=== PATIENT | female | born 1930 | race Caucasian/White ===

== ENCOUNTER 2016-09-19 12:53 | Emergency (ER) | payer MEDICARE ==
[~2016-09-19] VITALS: Ht 149.9 cm; Wt 48.0 kg
[2016-09-19] MEDS ORDERED: LISI1TAB7 PO (13:17)
[2016-09-19] MEDS ORDERED: PLEASE ENTER HEIGHT AND WEIGHT MC SCH (13:30)
[2016-09-19] MEDS ORDERED: BENZONATATE 100 MG CAPSULE PO ONE (13:30)
[2016-09-19 13:53] LABS: BLOOD UREA NITROGEN 23 mg/dL (7-18)
[2016-09-19 13:57] LABS: ASPARTATE AMINO TRANSFERASE 25 U/L (15-37)
[2016-09-19 15:52] LABS: PATH.CAST-FLAG NOT PRESENT; SPERM-FLAG NOT PRESENT; SRC-FLAG NOT PRESENT; XTAL-FLAG NOT PRESENT; YLC-FLAG NOT PRESENT
[2016-09-19 16:39] VITALS: BP 153/85
== END 2016-09-19 16:42 | disposition home or self-care (01) ==
LOC: ED 14:33
DX: R19.7 Diarrhea, unspecified (principal); B34.9 Viral infection, unspecified; I10 Essential (primary) hypertension; N28.9 Disorder of kidney and ureter, unspecified
CPT/HCPCS: 36415; 71010; 74176; 80053; 81001; 85025; 85610; 85730; 87086; 93005

== ENCOUNTER → 2016-11-05 | Outpatient (CLI) | payer MEDICARE ==
[~2016-11-05] MED LIST: ACET500T76 PO; LISI1TAB7 PO; ONDA4TAB7 PO; OXYC5SOL8 PO
== END | disposition home or self-care (01) ==
LOC: STAR 11:01
PROVIDERS: ATTEND Specialist
DX: Z01.812 Encounter for preprocedural laboratory examination (principal)
CPT/HCPCS: 36415; 82378; 86304

== ENCOUNTER 2016-11-10 12:02 | Observation (INO) | payer MEDICARE ==
[~2016-11-10] VITALS: Ht 149.9 cm; Wt 49.0 kg
[~2016-11-10 12:02] MED LIST changes: -ACET500T76 PO; +BUPIVACAINE/PF 0.25% ONE; +CEFOTETAN 1 GM ONE; +DEXAMETHASONE 4 MG/ML, 1ML ONE; +EPHEDRINE 50 MG/ML, 1ML ONE; +EPINEPHRINE 1 MG/ML, 1ML ONE; +GLYCOPYRROLATE 0.2MG/1ML ONE; +LABETALOL 5MG/ML 40ML VIAL ONE; +NEOSTIGMINE 1 MG/ML, 10ML ONE; -ONDA4TAB7 PO; +ONDANSETRON 2MG/ML, 2ML ONE; -OXYC5SOL8 PO; +PHENYLEPHRINE 10 MG/ML ONE; +PROPOFOL 10 MG/ML, 20ML ONE; +ROCURONIUM 10 MG/ML ONE
[2016-11-10 12:35] VITALS: BP 189/70
[2016-11-10] MEDS ORDERED: LACTATED RINGERS 1,000 ML IV SCH (12:37)
[2016-11-10] MEDS ORDERED: FENTANYL PF 250 MCG/5ML ONE (17:04)
[2016-11-10] MEDS ORDERED: HYDROmorphone 1 MG/ML, 1ML IV PRN (18:30)
[2016-11-10] MEDS ORDERED: EPHEDRINE 50 MG/ML, 1ML IVPush PRN (18:30)
[2016-11-10] MEDS ORDERED: ACETAMINOPHEN 325 MG TABLET PO PRN ×2 (18:30→21:30)
[2016-11-10] MEDS ORDERED: LABETALOL 5MG/ML, 20ML IV PRN (18:30)
[2016-11-10] MEDS ORDERED: hydrALAzine 20 MG/ML, 1ML IV PRN (18:30)
[2016-11-10] MEDS ORDERED: OXYcodone 5 MG/5 ML ORAL.SOL UDC PO PRN ×2 (18:30→21:30)
[2016-11-10] MEDS ORDERED: PROMETHAZINE 25 MG/ML, 1ML IV PRN (18:30)
[2016-11-10] MEDS ORDERED: ONDANSETRON 2MG/ML, 2ML IVPush PRN ×2 (18:30→22:30)
[2016-11-10] MEDS ORDERED: HYDROcodone/APAP 7.5-325MG/15ML UDC PO PRN (18:30)
[2016-11-10] MEDS ORDERED: ONDANSETRON 2MG/ML, 2ML ONE (20:10)
[2016-11-10] MEDS ORDERED: FENTANYL PF 100 MCG/2ML ONE (20:13)
[2016-11-10] MEDS: FENTANYL PF 100 MCG/2ML IV PRN ×2 (20:13→20:26)
[2016-11-10] MEDS ORDERED: ACETAMINOPHEN 650 MG SUPP PR PRN (21:30)
[2016-11-10] MEDS ORDERED: morphine SULFATE 10 MG/ML, 1ML IV PRN (21:30)
[2016-11-10] MEDS: POTASSIUM CHLORIDE 20 MEQ in D5%-0.45% NACL 1,000 ML IV SCH (22:30)
[2016-11-10 22:47] VITALS: BP 134/68
[2016-11-11 02:46] VITALS: BP 109/51
[2016-11-11 04:37] LABS: BLOOD UREA NITROGEN 22 mg/dL (7-18)
[2016-11-11] MEDS: POTASSIUM CHLORIDE 20 MEQ in D5%-0.45% NACL 1,000 ML IV SCH (07:27)
[2016-11-11 08:30] VITALS: BP 109/60
[2016-11-11] MEDS ORDERED: LISINOPRIL 20 MG TABLET PO SCH (09:00)
[2016-11-11] MEDS ORDERED: HYDROCHLOROTHIAZIDE 25 MG TABLET PO SCH (09:00)
[2016-11-11] MEDS ORDERED: OXYC5SOL8 PO (11:04)
[2016-11-11] MEDS ORDERED: ACET500T76 PO (11:05)
[2016-11-11] MEDS ORDERED: ONDA4TAB7 PO (11:06)
== END 2016-11-11 11:30 | disposition home or self-care (01) ==
LOC: OUT 12:02 → 4NOR 22:14 → INTOOBSV 22:14 → 3NW 22:23 → UNDODISIN 11-11 11:30
PROVIDERS: ADMIT Specialist; ATTEND Specialist
DX: N94.89 Other specified conditions associated with female genital organs and menstrual cycle (principal); N73.6 Female pelvic peritoneal adhesions (postinfective)
CPT/HCPCS: 36415; 58571; 80048; 85025; 86850; 86900; 86923; 88307; 88309; 88331; G0378; J0171; J1100; J2370; J2405; J2704; J2710; J3010; J3480; J3490; J7120; S2900; 96360; 96361; S0074

== ENCOUNTER 2020-05-03 09:28 | Inpatient (IN) | payer MEDICARE, OTHER ==
[~2020-05-03] VITALS: Ht 149.9 cm; Wt 41.1 kg
[~2020-05-03 09:28] MED LIST changes: +ACET325T26 PO; +ACET500T76 PO; +AMLO-150 PO; +ASPI81TA45 PO; -BUPIVACAINE/PF 0.25% ONE; -CEFOTETAN 1 GM ONE; -DEXAMETHASONE 4 MG/ML, 1ML ONE; -EPHEDRINE 50 MG/ML, 1ML ONE; -EPINEPHRINE 1 MG/ML, 1ML ONE; -GLYCOPYRROLATE 0.2MG/1ML ONE; -LABETALOL 5MG/ML 40ML VIAL ONE; +LISI1TAB20 PO; -LISI1TAB7 PO; -NEOSTIGMINE 1 MG/ML, 10ML ONE; +ONDA4TAB7 PO; -ONDANSETRON 2MG/ML, 2ML ONE; +OXYC5SOL8 PO; -PHENYLEPHRINE 10 MG/ML ONE; -PROPOFOL 10 MG/ML, 20ML ONE; -ROCURONIUM 10 MG/ML ONE
[2020-05-03] MEDS ORDERED: DILTIAZEM 5 MG/ML, 5ML ONE (09:48)
--- NOTE | 2020-05-03 09:53 | NUR ---
bib amb from home. pt states that she has not felt well since she fell 3 months ago and broke her hip. c/o feeling fatigued, cough at night, abd pain, and pain in hip. pt was found to have afib with RVR with no hx of afib
[2020-05-03] MEDS ORDERED: SODIUM CHLORIDE FLUSH 10ML SYR IVF ONE (10:00)
[2020-05-03] MEDS ORDERED: DILTIAZEM 125 MG in SODIUM CHLORIDE 0.9% 100 ML IV SCH (10:00)
[2020-05-03] MEDS ORDERED: DILTIAZEM 5 MG/ML, 5ML IV ONE (10:00)
[2020-05-03 10:13] LABS: BASOPHILS % (AUTO) 0 % (0-1); EOSINOPHILS % (AUTO) 1 % (1-7); LYMPHOCYTES % (AUTO) 8 % (22-44); MEAN CORPUSCULAR HEMOGLOBIN 32.6 pg (27.0-34.8); MEAN CORPUSCULAR HGB CONC 32.8 g/dL (32.4-35.8); MEAN PLATELET VOLUME 8.2 fL (7.4-10.4); MONOCYTES % (AUTO) 6 % (2-9); NEUTROPHILS % (AUTO) 85 % (42-75); PLATELET COUNT 232 x10^3/uL (130-400); RED BLOOD COUNT 3.28 x10^6/uL (3.82-5.3); RED CELL DISTRIBUTION WIDTH 17.5 % (9.6-15.2)
[2020-05-03 10:19] LABS: MD NO
[2020-05-03 10:27] LABS: ANION GAP 11 mmol/L (5-15); CHLORIDE 107 mmol/L (98-107)
[2020-05-03 10:32] LABS: ALANINE AMINOTRANSFERASE 8 U/L (12-78); ALKALINE PHOSPHATASE 61 U/L (45-117); BILIRUBIN,TOTAL 0.5 mg/dL (0.2-1.0); CREATININE 1.46 mg/dL (0.55-1.02); T4 (THYROXINE) 7.7 mcg/dL (4.8-13.9); TOTAL PROTEIN 6.5 g/dL (6.4-8.2)
--- NOTE | 2020-05-03 11:09 | NUR ---
PT TO CT
[2020-05-03] MEDS ORDERED: OMNIPAQUE 350 MG/ML, 100ML BOTTLE ONE (11:27)
[2020-05-03] MEDS ORDERED: HEPARIN 5,000 UNITS/ML, 1ML IV PRN (12:00)
[2020-05-03] MEDS ORDERED: HEPARIN 5,000 UNITS/ML, 1ML IV ONE (12:00)
[2020-05-03] MEDS ORDERED: HEPARIN 5,000 UNITS/ML, 1ML ONE ×2 (12:18→12:36)
[2020-05-03] MEDS ORDERED: HEPARIN 25,000 UNITS/250ML PMX 250 ML ONE (12:18)
[2020-05-03] MEDS ORDERED: METRONIDAZOLE PMX 500MG/100ML 100 ML IV ONE (12:30)
[2020-05-03] MEDS ORDERED: CEFOTETAN PMX 1GM/50ML 50 ML IVPB ONE (12:30)
[2020-05-03] MEDS ORDERED: SODIUM CHLORIDE FLUSH 10ML SYR IVF PRN (12:30)
[2020-05-03] MEDS: HEPARIN 25,000 UNITS/250ML PMX 250 ML IV PRN (12:37)
[2020-05-03] MEDS ORDERED: SODIUM CHLORIDE 0.9% 1,000ML IVBOLUS ONE (13:00)
[2020-05-03] MEDS: SODIUM CHLORIDE 0.9% 1,000 ML IV SCH (13:30)
[2020-05-03] MEDS ORDERED: ONDANSETRON ODT 4 MG PO PRN (13:30)
[2020-05-03] MEDS ORDERED: ACETAMINOPHEN 325 MG TABLET PO PRN (13:30)
[2020-05-03] MEDS ORDERED: ONDANSETRON 2MG/ML, 2ML IVPush PRN (13:30)
--- NOTE | 2020-05-03 13:33 | NUR ---
BREAK RN NOTE: REPORT TAKEN FROM ISHAAN SCHAFER FOR MEAL BREAK. 3RD PIV PLACED FOR IVF AND ABX, MD COOPER INFORMED OF PERSISTENT HYPOTENSION , NOW IMPROVING AT 94/49, NS BOLUS ORDERED AND INFUSING AT APPROX 500ML/HR. BETHANIE CORONA AT BEDSIDE TO ADMIT .
--- NOTE | 2020-05-03 13:35 | NUR ---
report given back to ISHAAN Banuelos at bedside. EDMD Shaffer notified pt has not had urinalysis, MD noe'd RN to start abx without ua, as abx are prescribed for colitis. pt a&o, resps even and unlabored, all monitors in place. nsr on office rn, rate 60s with no ectopy. pt to be admitted to [facility].
[2020-05-03] MEDS: PIPERACILLIN/TAZO/PMX 3.375GM 50 ML IV SCH (17:49)
[2020-05-03] MEDS: METOPROLOL TARTRATE 25 MG TAB PO SCH (18:00)
[2020-05-03 19:23] VITALS: BP 114/65
[2020-05-03 21:44] LABS: MICROSCOPIC AUTO
[2020-05-04 00:48] VITALS: BP 101/60
[2020-05-04] MEDS: PIPERACILLIN/TAZO/PMX 3.375GM 50 ML IV SCH ×3 (02:04→17:20)
[2020-05-04] MEDS: SODIUM CHLORIDE 0.9% 1,000 ML IV SCH ×2 (02:04→15:49)
[2020-05-04] MEDS: METOPROLOL TARTRATE 25 MG TAB PO SCH ×2 (06:06→16:55)
[2020-05-04 06:43] VITALS: BP 105/60
[2020-05-04 08:09] LABS: BASOPHILS % (AUTO) 1 % (0-1); EOSINOPHILS % (AUTO) 2 % (1-7); LYMPHOCYTES % (AUTO) 13 % (22-44); MEAN CORPUSCULAR HEMOGLOBIN 32.5 pg (27.0-34.8); MEAN CORPUSCULAR HGB CONC 33.1 g/dL (32.4-35.8); MEAN PLATELET VOLUME 8.5 fL (7.4-10.4); MONOCYTES % (AUTO) 9 % (2-9); NEUTROPHILS % (AUTO) 76 % (42-75); PLATELET COUNT 214 x10^3/uL (130-400); RED BLOOD COUNT 3.01 x10^6/uL (3.82-5.3); RED CELL DISTRIBUTION WIDTH 17.6 % (9.6-15.2)
[2020-05-04 08:21] LABS: CHLORIDE 109 mmol/L (98-107)
[2020-05-04 08:23] LABS: MD NO
[2020-05-04 08:30] LABS: ALANINE AMINOTRANSFERASE 9 U/L (12-78); ALBUMIN 2.4 g/dL (3.4-5.0); ALKALINE PHOSPHATASE 50 U/L (45-117); ANION GAP 12 mmol/L (5-15); BILIRUBIN,TOTAL 0.4 mg/dL (0.2-1.0); CALCIUM 8.6 mg/dL (8.5-10.1); CHOL/HDL RATIO 2.4; CHOLESTEROL, TOTAL 165 mg/dL (140-239); CREATININE 1.31 mg/dL (0.55-1.02); HDL CHOL % 42 % (28-40); HDL CHOLESTEROL (DIRECT) 69 mg/dL (40-60); LDL CHOLESTEROL,CALCULATED 74 mg/dL (54-169); LDL/HDL RATIO 1.1 (0.5-3.0); TOTAL PROTEIN 5.5 g/dL (6.4-8.2); TRIGLYCERIDES 111 mg/dL (50-200); VLDL CHOLESTEROL 22 mg/dL (0-25)
[2020-05-04 15:59] VITALS: BP 95/59
[2020-05-04 19:47] VITALS: BP 113/64
[2020-05-04 23:32] VITALS: BP 92/56
[2020-05-05] MEDS: PIPERACILLIN/TAZO/PMX 3.375GM 50 ML IV SCH ×3 (01:36→17:17)
[2020-05-05 02:30] VITALS: BP 94/53
[2020-05-05] MEDS: HEPARIN 25,000 UNITS/250ML PMX 250 ML IV PRN (02:51)
[2020-05-05] MEDS: METOPROLOL TARTRATE 25 MG TAB PO SCH ×2 (06:00→17:37)
[2020-05-05 06:03] LABS: BASOPHILS % (AUTO) 1 % (0-1); EOSINOPHILS % (AUTO) 3 % (1-7); LYMPHOCYTES % (AUTO) 9 % (22-44); MEAN CORPUSCULAR HGB CONC 33.7 g/dL (32.4-35.8); MEAN PLATELET VOLUME 8.4 fL (7.4-10.4); MONOCYTES % (AUTO) 7 % (2-9); NEUTROPHILS % (AUTO) 81 % (42-75); PLATELET COUNT 207 x10^3/uL (130-400); RED BLOOD COUNT 2.62 x10^6/uL (3.82-5.3); RED CELL DISTRIBUTION WIDTH 17.8 % (9.6-15.2)
[2020-05-05 06:13] LABS: MD NO
[2020-05-05 06:21] LABS: ANION GAP 12 mmol/L (5-15); CALCIUM 8.2 mg/dL (8.5-10.1); CHLORIDE 110 mmol/L (98-107)
[2020-05-05 06:22] LABS: CREATININE 1.14 mg/dL (0.55-1.02)
[2020-05-05] MEDS: SODIUM CHLORIDE 0.9% 1,000 ML IV SCH ×2 (06:23→17:37)
[2020-05-05 07:13] VITALS: BP 112/66
[2020-05-05] MEDS ORDERED: POTASSIUM CHLORIDE 20 MEQ TAB.ER.PRT PO ONE (10:00)
[2020-05-05 13:38] VITALS: BP 112/64
[2020-05-05 17:20] VITALS: BP 129/98
[2020-05-05 20:30] VITALS: BP 113/72
[2020-05-06 01:03] VITALS: BP 104/63
[2020-05-06] MEDS: PIPERACILLIN/TAZO/PMX 3.375GM 50 ML IV SCH ×3 (01:29→17:36)
[2020-05-06 05:13] VITALS: BP 95/46
[2020-05-06] MEDS: METOPROLOL TARTRATE 25 MG TAB PO SCH ×2 (05:15→17:32)
[2020-05-06 06:00] LABS: ANION GAP 10 mmol/L (5-15); CHLORIDE 112 mmol/L (98-107)
[2020-05-06 06:01] LABS: CREATININE 0.99 mg/dL (0.55-1.02)
[2020-05-06 07:38] VITALS: BP 110/59
[2020-05-06] MEDS: SODIUM CHLORIDE 0.9% 1,000 ML IV SCH (08:47)
[2020-05-06] MEDS ORDERED: APIXABAN 5 MG TABLET PO SCH ×2 (10:00)
[2020-05-06] MEDS ORDERED: POTASSIUM CHLORIDE 20 MEQ TAB.ER.PRT PO ONE (10:00)
[2020-05-06] MEDS: APIXABAN 5 MG TABLET PO SCH ×2 (10:19→20:06)
[2020-05-06] MEDS: POTASSIUM CHLORIDE 20 MEQ TAB.ER.PRT PO SCH ×2 (10:19→17:32)
[2020-05-06 13:18] VITALS: BP 106/70
[2020-05-06] MEDS ORDERED: ASPI-515 PO (14:29)
[2020-05-06] MEDS ORDERED: METO25TA35 PO (14:29)
[2020-05-06] MEDS ORDERED: AMOX1TAB64 PO (14:31)
[2020-05-06 17:38] VITALS: BP 132/79
[2020-05-06 20:03] LABS: OCCULT BLOOD POSITIVE (NEGATIVE)
[2020-05-06 21:38] VITALS: BP 111/66
[2020-05-07 01:13] VITALS: BP 119/67
[2020-05-07] MEDS: PIPERACILLIN/TAZO/PMX 3.375GM 50 ML IV SCH ×3 (01:13→17:20)
[2020-05-07] MEDS: ESOMEPRAZOLE 40 MG IV IVPush SCH ×2 (03:14→14:38)
[2020-05-07 05:39] LABS: ANION GAP 10 mmol/L (5-15); CALCIUM 8.1 mg/dL (8.5-10.1); CHLORIDE 113 mmol/L (98-107)
[2020-05-07 05:41] LABS: CREATININE 0.91 mg/dL (0.55-1.02)
[2020-05-07 05:53] LABS: BASOPHILS % (AUTO) 1 % (0-1); EOSINOPHILS % (AUTO) 2 % (1-7); LYMPHOCYTES % (AUTO) 8 % (22-44); MEAN CORPUSCULAR HGB CONC 32.8 g/dL (32.4-35.8); MEAN PLATELET VOLUME 8.7 fL (7.4-10.4); MONOCYTES % (AUTO) 10 % (2-9); NEUTROPHILS % (AUTO) 79 % (42-75); PLATELET COUNT 202 x10^3/uL (130-400); RED CELL DISTRIBUTION WIDTH 17.9 % (9.6-15.2)
[2020-05-07 05:59] LABS: MD NO
[2020-05-07] MEDS: POTASSIUM CHLORIDE 20 MEQ TAB.ER.PRT PO SCH ×2 (08:00→12:08)
[2020-05-07 08:07] VITALS: BP 148/77
[2020-05-07 08:18] LABS: CHLORIDE,URINE RANDOM 166 mmol/L; POTASSIUM,URINE RANDOM 31 mmol/L; SODIUM,URINE RANDOM 143 mmol/L
[2020-05-07] MEDS: APIXABAN 5 MG TABLET PO SCH ×2 (09:00→20:15)
[2020-05-07] MEDS ORDERED: POTASSIUM CHLORIDE 40 MEQ in SODIUM CHLORIDE 0.9% 500 ML IV ONE (09:30)
[2020-05-07] MEDS: METOPROLOL TARTRATE 25 MG TAB PO SCH ×2 (10:04→17:24)
[2020-05-07] MEDS: SODIUM CHLORIDE 0.9% 1,000 ML IV SCH (10:10)
[2020-05-07 12:42] LABS: BASOPHILS % (AUTO) 1 % (0-1); EOSINOPHILS % (AUTO) 2 % (1-7); LYMPHOCYTES % (AUTO) 9 % (22-44); MEAN CORPUSCULAR HEMOGLOBIN 32.2 pg (27.0-34.8); MEAN CORPUSCULAR HGB CONC 32.9 g/dL (32.4-35.8); MEAN PLATELET VOLUME 8.8 fL (7.4-10.4); MONOCYTES % (AUTO) 11 % (2-9); NEUTROPHILS % (AUTO) 78 % (42-75); PLATELET COUNT 192 x10^3/uL (130-400); RED BLOOD COUNT 2.51 x10^6/uL (3.82-5.3); RED CELL DISTRIBUTION WIDTH 17.4 % (9.6-15.2)
[2020-05-07 12:44] LABS: MD NO
[2020-05-07] MEDS ORDERED: LIDOCAINE 1%, 10ML ONE (13:35)
[2020-05-07] MEDS ORDERED: MIDAZOLAM 1 MG/ML, 5ML ONE (13:39)
[2020-05-07] MEDS ORDERED: FLUMAZENIL 0.1 MG/1 ML, 5ML ONE (13:39)
[2020-05-07] MEDS ORDERED: NALOXONE 1 MG/ML, 2ML ONE (13:39)
[2020-05-07] MEDS ORDERED: FENTANYL PF 100 MCG/2ML ONE (13:39)
[2020-05-07] MEDS ORDERED: VISIPAQUE 270 MG/ML, 50ML BOTTLE ONE (14:16)
[2020-05-07 14:40] VITALS: BP 108/55
[2020-05-07 19:15] VITALS: BP 101/56
[2020-05-08 00:37] VITALS: BP 109/58
[2020-05-08] MEDS: PIPERACILLIN/TAZO/PMX 3.375GM 50 ML IV SCH ×3 (01:10→16:58)
[2020-05-08] MEDS: SODIUM CHLORIDE 0.9% 1,000 ML IV SCH (03:00)
[2020-05-08] MEDS: ESOMEPRAZOLE 40 MG IV IVPush SCH ×2 (03:00→16:58)
[2020-05-08 05:16] VITALS: BP 112/57
[2020-05-08] MEDS: METOPROLOL TARTRATE 25 MG TAB PO SCH ×2 (05:17→16:59)
[2020-05-08 06:02] LABS: BASOPHILS % (AUTO) 1 % (0-1); EOSINOPHILS % (AUTO) 3 % (1-7); LYMPHOCYTES % (AUTO) 12 % (22-44); MEAN CORPUSCULAR HEMOGLOBIN 32.2 pg (27.0-34.8); MONOCYTES % (AUTO) 11 % (2-9); NEUTROPHILS % (AUTO) 73 % (42-75); PLATELET COUNT 207 x10^3/uL (130-400); RED BLOOD COUNT 2.58 x10^6/uL (3.82-5.3); RED CELL DISTRIBUTION WIDTH 17.6 % (9.6-15.2)
[2020-05-08 06:05] LABS: MD NO
[2020-05-08 06:13] LABS: ANION GAP 10 mmol/L (5-15); CALCIUM 8.2 mg/dL (8.5-10.1); CHLORIDE 115 mmol/L (98-107)
[2020-05-08 06:15] LABS: CREATININE 0.82 mg/dL (0.55-1.02)
[2020-05-08 07:53] VITALS: BP 126/80
[2020-05-08] MEDS: POTASSIUM CHLORIDE 20 MEQ TAB.ER.PRT PO SCH ×2 (08:00→16:59)
[2020-05-08] MEDS: APIXABAN 5 MG TABLET PO SCH (08:16)
[2020-05-08] MEDS ORDERED: PANT40GR PO ×3 (10:10→17:06)
[2020-05-08 13:13] VITALS: BP 116/70
[2020-05-08] MEDS ORDERED: CHLORHEXIDINE 15 ML UDC MM ONE (15:00)
[2020-05-08] MEDS ORDERED: EPHEDRINE 50 MG/ML, 1ML ONE (15:27)
[2020-05-08] MEDS ORDERED: PROPOFOL 10 MG/ML, 20ML ONE (15:27)
[2020-05-08] MEDS ORDERED: ONDANSETRON 2MG/ML, 2ML IVPush PRN (16:00)
[2020-05-08 19:51] VITALS: BP 113/61
[2020-05-09] MEDS: PIPERACILLIN/TAZO/PMX 3.375GM 50 ML IV SCH ×3 (01:17→17:00)
[2020-05-09] MEDS: SODIUM CHLORIDE 0.9% 1,000 ML IV SCH ×2 (01:17→15:20)
[2020-05-09 01:20] VITALS: BP 102/61
[2020-05-09 05:13] VITALS: BP 111/64
[2020-05-09] MEDS: ESOMEPRAZOLE 40 MG IV IVPush SCH ×2 (05:14→17:00)
[2020-05-09] MEDS: PANTOPRAZOLE 20MG TABLET PO SCH ×3 (05:14→16:00)
[2020-05-09] MEDS: METOPROLOL TARTRATE 25 MG TAB PO SCH (05:14)
[2020-05-09 08:02] VITALS: BP 110/57
[2020-05-09 12:44] VITALS: BP 121/66
[2020-05-13] MEDS ORDERED: APIXABAN 5 MG TABLET PO SCH (09:00)
== END 2020-05-09 17:49 | disposition home or self-care (01) | DRG 299 ==
LOC: ED 10:25 → EDIP 12:12 → 5SO 14:18 → 4EST 19:11 → 3N 05-04 23:19
PROVIDERS: ADMIT Internal Medicine; ATTEND Internal Medicine
PROC: 06H03DZ Insertion of Intraluminal Device into Inferior Vena Cava, Percutaneous Approach (ICD-10-PCS; principal; 2020-05-07)
PROC: 0DB68ZX Excision of Stomach, Via Natural or Artificial Opening Endoscopic, Diagnostic (ICD-10-PCS; 2020-05-08)
DX: I82.411 Acute embolism and thrombosis of right femoral vein (principal); E43 Unspecified severe protein-calorie malnutrition; K55.039 Acute (reversible) ischemia of large intestine, extent unspecified; N17.0 Acute kidney failure with tubular necrosis; D62 Acute posthemorrhagic anemia; I50.32 Chronic diastolic (congestive) heart failure; K22.10 Ulcer of esophagus without bleeding; Z68.1 Body mass index [BMI] 19.9 or less, adult; I82.403 Acute embolism and thrombosis of unspecified deep veins of lower extremity, bilateral; I48.91 Unspecified atrial fibrillation; I11.0 Hypertensive heart disease with heart failure; Z20.822 Contact with and (suspected) exposure to COVID-19; Z79.01 Long term (current) use of anticoagulants; Z86.718 Personal history of other venous thrombosis and embolism; Z90.710 Acquired absence of both cervix and uterus; Z95.828 Presence of other vascular implants and grafts
CPT/HCPCS: 36415; 96374; 99291; J3490; 37191; 71045; 74177; 80048; 80053; 80061; 81001; 82272; 82378; 82436; 83605; 83735; 83880; 84100; 84133; 84300; 84436; 84443; 84484; 85014; 85018; 85025; 85520; 87040; 87086; 88305; 93005; 93306; 99156; C1880; G0378; J1644; J2250; J2543; J2704; J3010; J3480; Q9966; Q9967; C1769; J2310; J7030; J7040; U0003

== ENCOUNTER 2020-09-28 15:36 | Emergency (ER) | payer MEDICARE ==
[~2020-09-28] VITALS: Ht 149.9 cm; Wt 45.5 kg
[~2020-09-28 15:36] MED LIST changes: +AMOX1TAB64 PO; +ASPI-963 PO; +METO25TA35 PO; +PANT40GR PO
--- NOTE | 2020-09-28 15:47 | NUR ---
BREAK RN: PT JULIEN REMSA AFTER A MGLF. PT REPORTS SHE TRIPPED OVER HER SHOES. NO LOC. PT DOES HAVE A LAC NOTED TO NOSE. BLEEDING CONTROLLED. VS STABLE. CALL LIGHT IN PLACE. WILL CONTINUE TO MONITOR WHILE PRIMARY RN IS ON BREAK.
--- NOTE | 2020-09-28 16:16 | NUR ---
REPORT GIVEN TO ISHAAN PRABHAKAR AND ISHAAN MATTHEWS
--- NOTE | 2020-09-28 16:30 | NUR ---
REPORT TAKEN FROM MANNY QUIROS. PT TRANSPORTED TO CT AT THIS TIME.
--- NOTE | 2020-09-28 16:43 | NUR ---
pt back from CT at this time.
--- NOTE | 2020-09-28 17:44 | NUR ---
PT RESTING IN BED, A&O, RESPS EVEN AND UNLABORED, VSS, NADN. GRANDSONS AT BEDSIDE. AWAITING SUTURE PROCEDURE AND DISPO.
[2020-09-28] MEDS ORDERED: LIDOCAINE 1%, 10ML INFIL ONE (18:00)
[2020-09-28] MEDS ORDERED: LIDOCAINE-MPF 1%, 5ML ONE (18:02)
--- NOTE | 2020-09-28 18:17 | NUR ---
SUTURE SUPPLIES AT BEDSIDE, LIDOCAINE GIVEN TO ERP.
--- NOTE | 2020-09-28 18:54 | NUR ---
REPORT GIVEN TO NICHOLE QUIROS
--- NOTE | 2020-09-28 18:58 | NUR ---
preceptor RN note: edpa suturing pt. pt confirmed with this RN that she has had tdap vaccine within last 5 yrs.
[2020-09-28] MEDS ORDERED: NEOSPORIN OINT. PKT 1 PACKET ONE (19:34)
[2020-09-28 19:51] VITALS: BP 150/64
== END 2020-09-28 20:02 | disposition home or self-care (01) ==
LOC: ED 16:47
DX: S02.2XXB Fracture of nasal bones, initial encounter for open fracture (principal); S61.411A Laceration without foreign body of right hand, initial encounter; S60.511A Abrasion of right hand, initial encounter; S80.212A Abrasion, left knee, initial encounter; S80.211A Abrasion, right knee, initial encounter; I10 Essential (primary) hypertension; W18.30XA Fall on same level, unspecified, initial encounter; Y93.89 Activity, other specified; Y92.830 Public park as the place of occurrence of the external cause; Y99.8 Other external cause status
CPT/HCPCS: 12001; 12011; 12051; 12052; 70450; 70486; 99285